=== PATIENT | male | born 1945 | race Caucasian/White ===

== ENCOUNTER 2019-11-08 16:39 | Inpatient (IN) | payer BC, OTHER ==
--- NOTE | 2019-11-08 17:56 | PDOC ---
History of Present Illness - General Chief Complaint: CVA/TIA Stated Complaint: SENT BY PCP Time Seen by Provider: 11/08/19 17:35 - History of Present Illness Initial Comments: 11/08/19 18:02 HPI 74 y/o M hx of CAD s/p stent placement (5 or 6 stents pt unsure), HTN, prediabetes, presents to the ED after an incident of left hand cramping this around 8a.m this morning. pt reports this episode lasted a few seconds and then resolved. he reports having a one similar episode per day for the last 2 days. pt contacted his laborer aquatic life Dr. Sharma' service who got back to him later on in the day and advised him to come to the hospital. Pt reports he was able to play 18 holes of golf after the incident this morning. There have been no other repeat incidents today. Pt denies numbness, tingling, unilateral weakness, headache, blurry vision, chest pain,shortness of breath. PMHx: as noted above ROS: as noted Allergies: NKDA ROS: GENERAL/CONSTITUTIONAL: No fever or chills. No weakness. HEAD, EYES, EARS, NOSE AND THROAT: No change in vision. No ear pain or discharge. No sore throat. CARDIOVASCULAR: No chest pain or shortness of breath RESPIRATORY: No cough, wheezing, or hemoptysis. GASTROINTESTINAL: No nausea, vomiting, diarrhea or constipation. GENITOURINARY: No dysuria, frequency, or change in urination. MUSCULOSKELETAL: No joint or muscle swelling or pain. No neck or back pain. SKIN: No rash NEUROLOGIC: No headache, vertigo, loss of consciousness, or change in strength/sensation. ENDOCRINE: No increased thirst. No abnormal weight change HEMATOLOGIC/LYMPHATIC: No anemia, easy bleeding, or history of blood clots. ALLERGIC/IMMUNOLOGIC: No hives or skin allergy. PE: GENERAL: Awake, alert, and fully oriented, in no acute distress HEAD: No signs of trauma, normocephalic, atraumatic EYES: PERRLA, EOMI, sclera anicteric, conjunctiva clear ENT: Auricles normal inspection, hearing grossly normal, nares patent, oropharynx clear without exudates. Moist mucosa NECK: Normal ROM, supple, no lymphadenopathy, JVD, or masses LUNGS: No distress, speaks full sentences, clear to auscultation bilaterally HEART: Regular rate and rhythm, normal S1 and S2, no murmurs, rubs or gallops, peripheral pulses normal and equal bilaterally. ABDOMEN: Soft, nontender, normoactive bowel sounds. No guarding, no rebound. No masses EXTREMITIES : Normal inspection, Normal range of motion, no edema. No clubbing or cyanosis NEUROLOGICAL: Cranial nerves II through XII grossly intact. Normal speech, no focal sensorimotor deficits SKIN: Warm, Dry, normal turgor, no rashes or lesions noted MDM DDx including but not limited to: tia, acs, Workup: stroke labs, head ct, chest x-ray, ekg. Scores - HEART score of 5 if troponin normal - EKG: normal sinus rhythm, HR 62bpm, IN 134ms, QRS 88ms, QTc 422ms, no ST elevations ED course NIHSS: 0, pt in nad at this time stroke labs, head ct without contrast signed out to Dr. Swenson. Past History - Medical History Allergies/Adverse Reactions: Allergies Allergy/AdvReac Type Severity Reaction Status Date / Time No Known Allergies Allergy Verified 11/08/19 16:49 Home Medications: Ambulatory Orders Aspirin 81 mg PO DAILY 11/08/19 Atorvastatin Ca [Lipitor] 80 mg PO HS 11/08/19 Citalopram Hydrobromide [Citalopram HBr] 20 mg PO DAILY 11/08/19 Clopidogrel Bisulfate [Clopidogrel] 75 mg PO DAILY 11/08/19 Losartan Potassium [Cozaar -] 25 mg PO DAILY 11/08/19 Metformin HCl [Glucophage] 500 mg PO BID 11/08/19 Metoprolol Succinate [Toprol Xl] 25 mg PO DAILY 11/08/19 Cardiac Disorders: Yes (5 STENTS ) COPD: No HTN: Yes Hypercholesterolemia: Yes - Psycho-Social/Smoking History Smoking History: Never smoked Have you smoked in the past 12 months: No Information on smoking cessation initiated: No - Substance Abuse Hx (Audit-C & DAST Scrn) How often the patient has a drink containing alcohol: Never Score: In Men: 4 or > Positive; In Women: 3 or > Positive: 0 Screen Result (Pos requires Nsg. Audit-10AR): Negative In the last yr the pt used illegal drug/Rx for NonMed reason: No Score: Yes response is considered Positive: 0 Screen Result (Positive result requires Nsg. DAST-10): Negative *Physical Exam - Vital Signs Last Vital Signs Temp Pulse Resp BP Pulse Ox 98.6 F 71 18 169/78 100 11/08/19 16:40 11/08/19 16:40 11/08/19 16:40 11/08/19 16:40 11/08/19 17:10 NIH Stroke Scale - Last Known Well Date/Time & Onset Date Last Known Well: 11/08/19 Time Last Known Well: 08:00 - Initial Evaluation Level of consciousness: Alert Ask patient the month and their age: Answers both correctly Ask patient to open & close eyes; make fist and let go: Obeys both correctly Best gaze (horizontal eye movement): Normal Visual field testing: No visual field loss Facial paresis (Show teeth/raise eyebrows/close eyes tight): Normal symmetrical movement Motor Function: Left Arm: Normal Motor Function: Right Arm: Normal (extends arm 90 (or 45) degrees for 10 seconds without drift Motor Function: Left Leg: Normal (extends leg 30 degrees for 5 seconds without drift) Motor Function: Right Leg: Normal (extends leg 30 degrees for 5 seconds without drift) Limb Ataxia: No ataxia Sensory(Use pinprick test arms,legs,trunk,face/side to side): Normal Best language (Describe picture, name items, read sentences): No Aphasia Dysarthria (read several words): Normal articulation Extinction and Inattention: No abnormality - Total Score NIH Stroke Scale Score: 0 Heart Score/ECG Review - History History: Moderately suspicious - Electrocardiogram EKG: Normal - Age Age: >/= 65 - Risk Factors Risk Factors Heart Score: Yes Hx Hypercholesterolemia, Yes Hx Hypertension, Yes Hx Diabetes Based on the list above the patient has:: >/=3 risk factors or Hx atherosclerotic disease - Troponin Troponin: </= normal limit - Score Heart Score - Total: 5 Discharge - Discharge Information Problems reviewed: Yes Clinical Impression/Diagnosis: Transient ischemic attack - Follow up/Referral - Patient Discharge Instructions - Post Discharge Activity
--- NOTE | 2019-11-08 17:59 | PDOC ---
Attending Attestation - Resident Resident Name: Alexadnria Avila - ED Attending Attestation I have performed the following: I have examined & evaluated the patient, The case was reviewed & discussed with the resident, I agree w/resident's findings & plan, Exceptions are as noted - HPI HPI: 74 yo M history CAD s/p 2 prior MIs, with stents placed twice, HTN, prediabetic presents s/p incident with L hand weakness/"stuck" this AM. He states it occurred at about 8am, lasted a few seconds. It was associated with a feeling of warmth, which reminded of his prior [place] symptoms (had a feeling of unpleasant warmth all over his body with both prior MIs). Currently asymptomatic. No changes in speech. No limp hand or leg, no sensation changes. Denies GARCIA. - Physicial Exam PE: GENERAL: Awake, alert, and fully oriented, in no acute distress HEAD: No signs of trauma EYES: PERRLA, EOMI, sclera anicteric, conjunctiva clear ENT: Auricles normal inspection, hearing grossly normal, nares patent, oropharynx clear without exudates. Moist mucosa NECK: Normal ROM, supple, no lymphadenopathy, JVD, or masses LUNGS: Breath sounds equal, clear to auscultation bilaterally. No wheezes, and no crackles HEART: Regular rate and rhythm, normal S1 and S2, no murmurs, rubs or gallops ABDOMEN: Soft, nontender, normoactive bowel sounds. No guarding, no rebound. No masses EXTREMITIES: Normal range of motion, no edema. No clubbing or cyanosis. No cords, erythema, or tenderness NEUROLOGICAL: Cranial nerves II through XII grossly intact. Normal speech, normal gait. Motor and sensation intact SKIN: Warm, dry, normal turgor, no rashes or lesions noted. - Medical Decision Making 11/08/19 18:56 Pt presents after speaking with Dr. Pollock, covering Dr. Jimenez, for CVA workup. Stroke labs pending, will go for CTH. He is out of the tPA window, and aside from that his NIHSS is zero at present. However, given his prior atypical presentations for his MIs, would be more concerned about MT, especially because he had the warmth, and because the hand symptoms were not typical for CVA. Either way, would anticipate admission. Awake CTH and troponin to help guide decision-making process. NIH Stroke Scale - Last Known Well Date/Time & Onset Date Last Known Well: 11/08/19 Time Last Known Well: 08:00 - Initial Evaluation Level of consciousness: Alert Ask patient the month and their age: Answers both correctly Ask patient to open & close eyes; make fist and let go: Obeys both correctly Best gaze (horizontal eye movement): Normal Visual field testing: No visual field loss Facial paresis (Show teeth/raise eyebrows/close eyes tight): Normal symmetrical movement Motor Function: Left Arm: Normal Motor Function: Right Arm: Normal (extends arm 90 (or 45) degrees for 10 seconds without drift Motor Function: Left Leg: Normal (extends leg 30 degrees for 5 seconds without drift) Motor Function: Right Leg: Normal (extends leg 30 degrees for 5 seconds without drift) Limb Ataxia: No ataxia Sensory(Use pinprick test arms,legs,trunk,face/side to side): Normal Best language (Describe picture, name items, read sentences): No Aphasia Dysarthria (read several words): Normal articulation Extinction and Inattention: No abnormality - Total Score NIH Stroke Scale Score: 0 Discharge - Discharge Information Problems reviewed: Yes Clinical Impression/Diagnosis: Transient ischemic attack - Follow up/Referral - Patient Discharge Instructions - Post Discharge Activity
[2019-11-08 18:22] LABS: BASO % 1.1 % (0-2.0); HEMATOCRIT 37.2 % (35.4-49); HEMOGLOBIN 12.6 GM/dL (11.7-16.9); LYMPH % 21.2 % (8-40); MCH 29.6 pg (25.7-33.7); MCHC 33.9 g/dl (32.0-35.9); MEAN CELL VOLUME 87.5 fl (80-96); MEAN PLT VOLUME 8.9 fl (7.5-11.1); MONO % 10.9 % (3.8-10.2); NEUT % 63.8 % (42.8-82.8); PLATELET COUNT 140 K/MM3 (134-434); RBC 4.24 M/mm3 (4.00-5.60); RDW 13.9 % (11.9-15.9); WHITE BLOOD COUNT 5.4 K/mm3 (4.0-10.0)
[2019-11-08 18:53] LABS: ALBUMIN 3.8 g/dl (3.4-5.0); ALK PHOS 88 U/L (45-117); ANION GAP 5 MMOL/L (8-16); BILIRUBIN,TOTAL 0.9 mg/dL (0.2-1); BLOOD UREA NITROGEN 22.7 mg/dL (7-18); CALCIUM 8.3 mg/dL (8.5-10.1); CHLORIDE 110 mmol/L (98-107); CHOLESTEROL 134 mg/dL (50-200); CO2 27 mmol/L (21-32); GLUCOSE,RANDOM 108 mg/dL (74-106); HDL CHOLESTEROL 30 mg/dL (40-60); LDL CHOLESTEROL (ONLY SJRH) 71 mg/dL (5-100); POTASSIUM 3.9 mmol/L (3.5-5.1); SGOT/AST 19 U/L (15-37); SGPT/ALT 25 U/L (13-61); SODIUM 143 mmol/L (136-145); TOT PROT 6.7 g/dl (6.4-8.2); TRIGLYCERIDES 340 mg/dL (0-150)
[2019-11-08 19:35] LABS: URINE APPEARANCE CLEAR; URINE BILIRUBIN NEGATIVE (NEGATIVE); URINE COLOR YELLOW; URINE GLUCOSE (UA) NEGATIVE (NEGATIVE); URINE KETONE NEGATIVE (NEGATIVE); URINE LEUK ESTERASE NEGATIVE (NEGATIVE); URINE NITRITE NEGATIVE (NEGATIVE); URINE PROTEIN NEGATIVE (NEGATIVE)
[2019-11-08] MEDS ORDERED: ATORVASTATIN CA 80 MG TABLET (FP) ONE (21:52)
[2019-11-08] MEDS ORDERED: metFORMIN HCL 500 MG TABLET (FP) ONE (21:52)
[2019-11-08] MEDS: ATORVASTATIN CA 80 MG TABLET (FP) PO SCH (21:59)
[2019-11-08] MEDS: metFORMIN HCL 500 MG TABLET (FP) PO SCH (21:59)
--- NOTE | 2019-11-08 23:00 | CON.CARD ---
Consult Consult Specialty:: Cardiology for dr. Rivera - History of Present Illness History of Present Illness: 74 yo M history CAD s/p 2 prior MIs, with stents placed twice, HTN, prediabetic presents s/p incident with L hand weakness/"stuck" this AM. He states it occurred at about 8am, lasted a few seconds. It was associated with a feeling of warmth, which reminded of his prior [place] symptoms (had a feeling of unpleasant warmth all over his body with both prior MIs). Currently asymptomatic. No changes in speech. No limp hand or leg, no sensation changes. Denies GARCIA. - History Source History Provided By: Medical Record - Past Medical History Cardio/Vascular: Yes: HTN, Hyperlipdemia Endocrine: Yes: Diabetes Mellitus - Smoking History Smoking history: Never smoked Have you smoked in the past 12 months: No Home Medications - Allergies Allergies/Adverse Reactions: Allergies Allergy/AdvReac Type Severity Reaction Status Date / Time No Known Allergies Allergy Verified 11/08/19 16:49 - Home Medications Home Medications: Ambulatory Orders Aspirin 81 mg PO DAILY 11/08/19 Atorvastatin Ca [Lipitor] 80 mg PO HS 11/08/19 Citalopram Hydrobromide [Citalopram HBr] 20 mg PO DAILY 11/08/19 Clopidogrel Bisulfate [Clopidogrel] 75 mg PO DAILY 11/08/19 Losartan Potassium [Cozaar -] 25 mg PO DAILY 11/08/19 Metformin HCl [Glucophage] 500 mg PO BID 11/08/19 Metoprolol Succinate [Toprol Xl] 25 mg PO DAILY 11/08/19 Review of Systems - Review of Systems Constitutional: reports: No Symptoms Eyes: reports: No Symptoms HENT: reports: No Symptoms Neck: reports: No Symptoms Cardiovascular: reports: No Symptoms Respiratory: reports: No Symptoms Gastrointestinal: reports: No Symptoms Genitourinary: reports: No Symptoms Breasts: reports: No Symptoms Reported Musculoskeletal: reports: No Symptoms Integumentary: reports: No Symptoms Neurological: reports: Weakness Endocrine: reports: No Symptoms Hematology/Lymphatic: reports: No Symptoms Psychiatric: reports: No Symptoms Vital Signs: Vital Signs Temperature 98.1 F 11/08/19 19:15 Pulse Rate 59 L 11/08/19 19:15 Respiratory Rate 15 11/08/19 19:15 Blood Pressure 143/78 11/08/19 19:15 O2 Sat by Pulse Oximetry (%) 99 11/08/19 19:15 Constitutional: Yes: Well Nourished, No Distress, Calm Eyes: Yes: WNL, Conjunctiva Clear, EOM Intact HENT: Yes: WNL, Atraumatic, Normocephalic Neck: Yes: WNL, Supple, Trachea Midline Respiratory: Yes: WNL, Regular, CTA Bilaterally Gastrointestinal: Yes: WNL, Normal Bowel Sounds Renal/: Yes: WNL Cardiovascular: Yes: WNL, Regular Rate and Rhythm Musculoskeletal: Yes: WNL Extremities: Yes: WNL - Other Data Labs, Other Data: CBC, BMP 11/08/19 18:10 11/08/19 18:10 Troponin, BNP 11/08/19 18:10 Troponin I < 0.02 Troponin, BNP 11/08/19 18:10 Troponin I < 0.02 Imaging - Results Chest X-ray: Image Reviewed (no i/e) EKG: Image Reviewed (sr wnl) Assessment/Plan 74 yo M history CAD s/p 2 prior MIs, with stents placed twice, HTN, prediabetic presents s/p incident with L hand weakness. EKG wnl, 1 CE neg r/o TIA Plan; Cont medical treatment ASA/Plavix C. Duplex ECHO if not done recently neurology evaluation serial ekg CE Coverage for dr. Gibbs
[2019-11-09 07:55] LABS: BLOOD UREA NITROGEN 20.8 mg/dL (7-18); CALCIUM 8.4 mg/dL (8.5-10.1); CREATININE 0.8 mg/dL (0.55-1.3); POTASSIUM 4.3 mmol/L (3.5-5.1)
[2019-11-09] MEDS ORDERED: ASPIRIN 81 MG CHEWABLE TABLETS ONE (09:23)
[2019-11-09] MEDS ORDERED: metFORMIN HCL 500 MG TABLET (FP) ONE (09:23)
[2019-11-09] MEDS ORDERED: CLOPIDOGREL BISULFATE 75 MG TABLET (FP) ONE (09:24)
[2019-11-09] MEDS ORDERED: LOSARTAN POTASSIUM 50 MG TABLET (FP) ONE (09:24)
[2019-11-09] MEDS ORDERED: CITALOPRAM HYDROBROMIDE 10 MG TABLET ONE (09:24)
[2019-11-09] MEDS ORDERED: metoPROLOL SUCCINATE 25 MG TAB.SR.24H (FP) ONE (09:24)
--- NOTE | 2019-11-09 09:25 | PN ---
Progress Note, Physician History of Present Illness: 74 yo M history CAD s/p 2 prior MIs, with stents placed twice, HTN, prediabetic presents s/p incident with L hand weakness/"stuck" this AM. He states it occurred at about 8am, lasted a few seconds. It was associated with a feeling of warmth, which reminded of his prior [place] symptoms (had a feeling of unpleasant warmth all over his body with both prior MIs). Currently asymptomatic. No changes in speech. No limp hand or leg, no sensation changes. Denies GARCIA. - Current Medication List Current Medications: Active Medications Aspirin (Asa -) 81 mg PO DAILY [facility] Atorvastatin Calcium (Lipitor -) 80 mg PO HS [facility] Last Admin: 11/08/19 21:59 Dose: 80 mg Documented by: Citalopram Hydrobromide (Celexa -) 20 mg PO DAILY [facility] Clopidogrel Bisulfate (Plavix -) 75 mg PO DAILY [facility] Losartan Potassium (Cozaar -) 25 mg PO DAILY [facility] Metformin HCl (Glucophage -) 500 mg PO BID [facility] Last Admin: 11/08/19 21:59 Dose: 500 mg Documented by: Metoprolol Succinate (Toprol Xl -) 25 mg PO DAILY [facility] - Objective Vital Signs: Vital Signs Temperature 97.8 F 11/09/19 05:49 Pulse Rate 55 L 11/09/19 08:02 Respiratory Rate 18 11/09/19 08:02 Blood Pressure 146/81 11/09/19 08:02 O2 Sat by Pulse Oximetry (%) 100 11/09/19 08:04 Eyes: Yes: WNL, Conjunctiva Clear, EOM Intact HENT: Yes: WNL, Atraumatic, Normocephalic Neck: Yes: WNL, Supple, Trachea Midline Cardiovascular: Yes: WNL, Regular Rate and Rhythm Respiratory: Yes: WNL, Regular, CTA Bilaterally Gastrointestinal: Yes: WNL, Normal Bowel Sounds Genitourinary: Yes: WNL Musculoskeletal: Yes: WNL Extremities: Yes: WNL Edema: No Integumentary: Yes: WNL Neurological: Yes: WNL, Alert, Oriented ...Motor Strength: WNL Psychiatric: Yes: WNL Labs: CBC, BMP 11/08/19 18:10 11/09/19 06:12 Assessment/Plan 74 yo M history CAD s/p 2 prior MIs, with stents placed twice, HTN, prediabetic presents s/p incident with L hand weakness. EKG wnl, 1 st CE neg r/o TIA Plan; Cont medical treatment ASA/Plavix C. Duplex ECHO if not done recently neurology evaluation serial ekg CE Coverage for dr. Gibbs
[2019-11-09] MEDS: CITALOPRAM HYDROBROMIDE 20 MG TABLET PO SCH (09:29)
[2019-11-09] MEDS: CLOPIDOGREL BISULFATE 75 MG TABLET (FP) PO SCH (09:29)
[2019-11-09] MEDS: ASPIRIN 81 MG CHEWABLE TABLETS PO SCH (09:29)
[2019-11-09] MEDS: metoPROLOL SUCCINATE 25 MG TAB.SR.24H (FP) PO SCH (09:29)
[2019-11-09] MEDS: LOSARTAN POTASSIUM 25 MG TABLET PO SCH (09:29)
[2019-11-09] MEDS: metFORMIN HCL 500 MG TABLET (FP) PO SCH ×2 (09:29→21:29)
--- NOTE | 2019-11-09 09:53 | HP ---
Admitting History and Physical - Primary Care Physician PCP: Jalyn Morillo S - Admission Chief Complaint: LUE weakness and numbness History of Present Illness: 74 yo M history CAD s/p 2 prior MIs, with stents placed twice over 10 years ago, HTN, prediabetic presents s/p incident with L hand weakness/"stuck" this AM. He states it occurred at about 8am, lasted a few seconds. It was associated with a feeling of warmth, which reminded of his prior [place] symptoms (had a feeling of unpleasant warmth all over his body with both prior MIs). Currently asymptomati c. No changes in speech. No limp hand or leg, no sensation changes. Denies GARCIA. History Source: Patient, Medical Record Limitations to Obtaining History: No Limitations - Past Medical History Cardiovascular: Yes: CAD, HTN, Hyperlipdemia Endocrine: Yes: Diabetes Mellitus - Smoking History Smoking history: Never smoked Have you smoked in the past 12 months: No - Alcohol/Substance Use Hx Alcohol Use: No History of Substance Use: reports: None - Social History Usual Living Arrangement: Yes: Alone Do you think of yourself as: Straight/Heterosexual ADL: Independent History of Recent Travel: No Home Medications - Allergies Allergies/Adverse Reactions: Allergies Allergy/AdvReac Type Severity Reaction Status Date / Time No Known Allergies Allergy Verified 11/08/19 16:49 - Home Medications Home Medications: Ambulatory Orders Aspirin 81 mg PO DAILY 11/08/19 Atorvastatin Ca [Lipitor] 80 mg PO HS 11/08/19 Citalopram Hydrobromide [Citalopram HBr] 20 mg PO DAILY 11/08/19 Clopidogrel Bisulfate [Clopidogrel] 75 mg PO DAILY 11/08/19 Losartan Potassium [Cozaar -] 25 mg PO DAILY 11/08/19 Metformin HCl [Glucophage] 500 mg PO BID 11/08/19 Metoprolol Succinate [Toprol Xl] 25 mg PO DAILY 11/08/19 Family Medical History Family History: Unremarkable Review of Systems - Review of Systems Constitutional: denies: Chills, Fever, Lethargy Eyes: denies: Blind Spots, Blurred Vision, Double Vision HENT: denies: Difficult Swallowing, Ear Pain, Epistaxis Neck: denies: Decreased ROM, Lumps, Pain on Movement, Stiffness, Tenderness Cardiovascular: denies: Chest Pain, Edema, Palpitations, Shortness of Breath Respiratory: denies: Cough, SOB, SOB on Exertion, Wheezing Gastrointestinal: denies: Abdominal Pain, Constipation, Diarrhea, Vomiting Genitourinary: denies: Dysuria, Flank Pain Musculoskeletal: denies: Back Pain, Joint Pain Integumentary: denies: Eczema, Pruritis, Rash Neurological: denies: Change in LOC, Change in Speech, Confusion, Headache, Seizure, Syncope Endocrine: denies: Excessive Sweating, Unexplained Weight Gain, Unexplained Weight Loss Hematology/Lymphatic: denies: Easily Bruised, Excessive Bleeding Psychiatric: denies: Altered Sleep Pattern, Suicidal Physical Examination Vital Signs: Vital Signs Temperature 97.8 F 11/09/19 05:49 Pulse Rate 69 11/09/19 09:51 Respiratory Rate 18 11/09/19 09:51 Blood Pressure 155/78 11/09/19 09:51 O2 Sat by Pulse Oximetry (%) 100 11/09/19 09:51 Constitutional: Yes: No Distress, Calm Eyes: Yes: Conjunctiva Clear HENT: Yes: Atraumatic Neck: Yes: Supple Cardiovascular: Yes: Regular Rate and Rhythm Respiratory: Yes: CTA Bilaterally Gastrointestinal: Yes: Soft. No: Tenderness Renal/: No: Hematuria Musculoskeletal: No: Joint Stiffness, Joint Swelling Extremities: No: Cold, Cool, Cyanosis Edema: No Integumentary: No: Rash, Venous Stasis Changes Neurological: Yes: Alert, Oriented ...Motor Strength: WNL Psychiatric: Yes: Alert, Oriented. No: Agitated, Suicidal Ideation Labs: CBC, BMP 11/08/19 18:10 11/09/19 06:12 Imaging - Results Chest X-ray: Report Reviewed Cat Scan: Report Reviewed EKG: Report Reviewed Assessment/Plan 74 yo M history CAD s/p 2 prior MIs, with stents placed twice, HTN, prediabetic presents s/p incident with L hand weakness/"stuck" this AM. He states it occurred at about 8am, lasted a few seconds. admit to telemetry cardio and neuro eval CE; plavix and ASA po carotid US d/w pt and staff will d/w pt's PCP dr Marisela Contreras
--- NOTE | 2019-11-09 12:45 | EKG ---
Test Reason : Blood Pressure : / mmHG Vent. Rate : 062 BPM Atrial Rate : 062 BPM P-R Int : 134 ms QRS Dur : 088 ms QT Int : 416 ms P-R-T Axes : 070 009 004 degrees QTc Int : 422 ms NORMAL SINUS RHYTHM NORMAL ECG NO PREVIOUS ECGS AVAILABLE Confirmed by Jerry Smith ([id number]) on 11/09/2019 12:45:07 PM Referred By: Confirmed By:Jerry Smith
--- NOTE | 2019-11-09 16:40 | CON.NEURO ---
Consult - Past Medical History Cardio/Vascular: Yes: HTN, Hyperlipdemia Endocrine: Yes: Diabetes Mellitus - Smoking History Smoking history: Never smoked Have you smoked in the past 12 months: No Home Medications - Allergies Allergies/Adverse Reactions: Allergies Allergy/AdvReac Type Severity Reaction Status Date / Time No Known Allergies Allergy Verified 11/08/19 16:49 - Home Medications Home Medications: Ambulatory Orders Aspirin 81 mg PO DAILY 11/08/19 Atorvastatin Ca [Lipitor] 80 mg PO HS 11/08/19 Citalopram Hydrobromide [Citalopram HBr] 20 mg PO DAILY 11/08/19 Clopidogrel Bisulfate [Clopidogrel] 75 mg PO DAILY 11/08/19 Losartan Potassium [Cozaar -] 25 mg PO DAILY 11/08/19 Metformin HCl [Glucophage] 500 mg PO BID 11/08/19 Metoprolol Succinate [Toprol Xl] 25 mg PO DAILY 11/08/19 Physical Exam-Neuro Vital Signs: Vital Signs Temperature 97.8 F 11/09/19 05:49 Pulse Rate 69 11/09/19 09:51 Respiratory Rate 18 11/09/19 09:51 Blood Pressure 155/78 11/09/19 09:51 O2 Sat by Pulse Oximetry (%) 100 11/09/19 09:51 Labs: CBC, BMP 11/08/19 18:10 11/09/19 06:12 Assessment/Plan CC left arm transient weakness HPI 74 year old male history of htn, hld, prediabetes, cad s/p stent placement. He came for left arm weakness , and he was feeling uncomfortable chest and both arm some strange feeling. He did have ct head, and carotid ultrasound is normal. He do take aspirin, plavix and statin at home. Patient deines any ncek pain, face tingling or numbness , speech difficulty, no face droppiness.This episode lasted few minute H PMHx: as noted above ROS: as noted Allergies: NKDA Allergies/Adverse Reactions: Allergies Allergy/AdvReac Type Severity Reaction Status Date / Time No Known Allergies Allergy Verified 11/08/19 16:49 Home Medications: Aspirin 81 mg PO DAILY 11/08/19 Atorvastatin Ca [Lipitor] 80 mg PO HS 11/08/19 Citalopram Hydrobromide [Citalopram HBr] 20 mg PO DAILY 11/08/19 Clopidogrel Bisulfate [Clopidogrel] 75 mg PO DAILY 11/08/19 Losartan Potassium [Cozaar -] 25 mg PO DAILY 11/08/19 Metformin HCl [Glucophage] 500 mg PO BID 11/08/19 Metoprolol Succinate [Toprol Xl] 25 mg PO DAILY 11/08/19 ROS,FH,SH reviewed in chart neurological examination Alert oriented x 3 neck is supple eomi, pupilks reactive no face asymmetry moving all ext sensation is normal gait and coordination ct head is noraml carotid ultrasound unremarkable Assessment/Plan 4 year old male history of htn, hld, prediabetes, cad s/p stent placement . He came with transient left arm weakness suspect tia Plan: continue aspirin , plavix and statin - He would benefit from mri ofbrain if we found a ischemic lesion, than would lead to more aggressive preventative strategy and monitoring for transient AF. - He is claustrophobic and may not have mri in hospital, would do outpatient - continue current level of care, follow up outpatient Thankign you so much Theodore Marx MD
[2019-11-09 17:47] VITALS: BMI 28.6
--- NOTE | 2019-11-09 21:21 | EKG ---
Test Reason : Blood Pressure : / mmHG Vent. Rate : 056 BPM Atrial Rate : 056 BPM P-R Int : 138 ms QRS Dur : 090 ms QT Int : 440 ms P-R-T Axes : 050 -07 -05 degrees QTc Int : 424 ms SINUS BRADYCARDIA WITH PREMATURE ATRIAL COMPLEXES MINIMAL VOLTAGE CRITERIA FOR LVH, MAY BE NORMAL VARIANT BORDERLINE ECG WHEN COMPARED WITH ECG OF 08-NOV-2019 16:57, PREMATURE ATRIAL COMPLEXES ARE NOW PRESENT Confirmed by VICK ESCOBAR, DANG ([id number]) on 11/09/2019 9:21:04 PM Referred By: Cynthia MARINO Confirmed By:DANG HICKMAN MD
[2019-11-09] MEDS: ATORVASTATIN CA 80 MG TABLET (FP) PO SCH (21:29)
[2019-11-10 06:27] VITALS: TEMP 97.5
[2019-11-10 09:18] VITALS: BP 123/52; PULSE 65
[2019-11-10] MEDS ORDERED: ALPRAZolam 0.25 MG TABLET PO ONE (09:18)
--- NOTE | 2019-11-10 09:19 | DS ---
Physical Examination Vital Signs: Vital Signs Temperature 97.5 F L 11/10/19 09:16 Pulse Rate 65 11/10/19 09:16 Respiratory Rate 20 11/10/19 09:16 Blood Pressure 123/52 L 11/10/19 09:16 O2 Sat by Pulse Oximetry (%) 97 11/10/19 09:16 Findings/Remarks: feels well no c/o LUE improved wants to go home d/w neuro if brain MRI ade cute changes to DC home f/u outpt; cleared by cardio for DC home d/w pt f/u needed d/w pt's PCP dr Marisela Enciso Constitutional: Yes: No Distress, Calm Eyes: Yes: Conjunctiva Clear HENT: Yes: Atraumatic Neck: Yes: Supple Cardiovascular: Yes: Regular Rate and Rhythm Respiratory: Yes: CTA Bilaterally Gastrointestinal: Yes: Soft. No: Tenderness Renal/: No: Hematuria Musculoskeletal: No: Joint Stiffness, Joint Swelling Extremities: No: Cold, Cool, Cyanosis Edema: No Integumentary: No: Rash, Venous Stasis Changes Neurological: Yes: Alert, Oriented ...Motor Strength: WNL Psychiatric: Yes: Alert, Oriented. No: Agitated, Suicidal Ideation Labs: CBC, BMP 11/08/19 18:10 11/09/19 06:12 Discharge Summary Problems reviewed: Yes Reason For Visit: TRANSIENT ISCHEMIC ATTACK Current Active Problems Transient ischemic attack (Acute) Procedures: Principal: 74 YOM admitted with LUE numbness CE negative head CT negative Other Procedures: seen by cardio and neurology; carotid US negative; brain MRI no acute CVA Hospital Course: improved with above; DC home f/u as advised. Condition: Improved - Instructions Diet, Activity, Other Instructions: f/u PCP cardiology and neurology in 1-2 weeks after DC home RTER if worse or recurrent c/o take meds as advised d/w pt Referrals: Mihcel Perez MD [Staff Physician] - Gera Gibbs MD [Staff Physician] - Brittny Enciso MD [Primary Care Provider] - - Home Medications Comprehensive Discharge Medication List: Ambulatory Orders Aspirin 81 mg PO DAILY 11/08/19 Atorvastatin Ca [Lipitor] 80 mg PO HS 11/08/19 Citalopram Hydrobromide [Citalopram HBr] 20 mg PO DAILY 11/08/19 Clopidogrel Bisulfate [Clopidogrel] 75 mg PO DAILY 11/08/19 Losartan Potassium [Cozaar -] 25 mg PO DAILY 11/08/19 Metformin HCl [Glucophage] 500 mg PO BID 11/08/19 Metoprolol Succinate [Toprol Xl] 25 mg PO DAILY 11/08/19
[2019-11-10] MEDS: LOSARTAN POTASSIUM 25 MG TABLET PO SCH (10:13)
[2019-11-10] MEDS: metoPROLOL SUCCINATE 25 MG TAB.SR.24H (FP) PO SCH (10:13)
[2019-11-10] MEDS: CITALOPRAM HYDROBROMIDE 20 MG TABLET PO SCH (10:13)
[2019-11-10] MEDS: ASPIRIN 81 MG CHEWABLE TABLETS PO SCH (10:13)
[2019-11-10] MEDS: metFORMIN HCL 500 MG TABLET (FP) PO SCH (10:13)
[2019-11-10] MEDS: CLOPIDOGREL BISULFATE 75 MG TABLET (FP) PO SCH (10:13)
--- NOTE | 2019-11-10 11:47 | PN ---
Progress Note, Physician Chief Complaint: Events noted Not in distress History of Present Illness: Patient was seen and examined. Awake and alert. Chart was reviewed Denies chest pain, SOB or palpitations - Current Medication List Current Medications: Active Medications Aspirin (Asa -) 81 mg PO DAILY [facility] Last Admin: 11/10/19 10:13 Dose: 81 mg Documented by: Atorvastatin Calcium (Lipitor -) 80 mg PO HS [facility] Last Admin: 11/09/19 21:29 Dose: 80 mg Documented by: Citalopram Hydrobromide (Celexa -) 20 mg PO DAILY [facility] Last Admin: 11/10/19 10:13 Dose: 20 mg Documented by: Clopidogrel Bisulfate (Plavix -) 75 mg PO DAILY [facility] Last Admin: 11/10/19 10:13 Dose: 75 mg Documented by: Losartan Potassium (Cozaar -) 25 mg PO DAILY [facility] Last Admin: 11/10/19 10:13 Dose: 25 mg Documented by: Metformin HCl (Glucophage -) 500 mg PO BID [facility] Last Admin: 11/10/19 10:13 Dose: 500 mg Documented by: Metoprolol Succinate (Toprol Xl -) 25 mg PO DAILY [facility] Last Admin: 11/10/19 10:13 Dose: 25 mg Documented by: - Objective Vital Signs: Vital Signs Temperature 97.5 F L 11/10/19 09:16 Pulse Rate 65 11/10/19 09:16 Respiratory Rate 20 11/10/19 09:16 Blood Pressure 123/52 L 11/10/19 09:16 O2 Sat by Pulse Oximetry (%) 97 11/10/19 09:16 Neck: Yes: Supple Cardiovascular: Yes: Regular Rate and Rhythm, S1, S2. No: Murmur Respiratory: Yes: CTA Bilaterally Gastrointestinal: Yes: Normal Bowel Sounds, Soft. No: Tenderness Edema: No Additional Findings/Remarks: - Review of Systems Constitutional: denies: Chills, Fever Cardiovascular: denies: Chest Pain, Palpitations, Shortness of Breath Respiratory: denies: Cough, Hemoptysis, Orthopnea, PND, SOB, SOB on Exertion Gastrointestinal: denies: Abdominal Pain, Constipation, Diarrhea, Melena, Nausea, Rectal Bleeding, Vomiting Genitourinary: denies: Dysuria, Hematuria Musculoskeletal: denies: Back Pain, Joint Pain Neurological: denies: Dizziness, Headache, Seizure, Syncope Labs: CBC, BMP 11/08/19 18:10 11/09/19 06:12 Problem List - Problems (1) CAD (coronary artery disease) Code(s): I25.10 - ATHSCL HEART DISEASE OF [place] CORONARY ARTERY W/O ANG PCTRS (2) History of percutaneous coronary intervention Code(s): Z98.61 - CORONARY ANGIOPLASTY STATUS (3) HTN (hypertension) Code(s): I10 - ESSENTIAL (PRIMARY) HYPERTENSION (4) Hypercholesterolemia Code(s): E78.00 - PURE HYPERCHOLESTEROLEMIA, UNSPECIFIED (5) Pre-diabetes Code(s): R73.03 - PREDIABETES (6) Transient ischemic attack Code(s): G45.9 - TRANSIENT CEREBRAL ISCHEMIC ATTACK, UNSPECIFIED Assessment/Plan 1. CAD s/p PCI/stent, SD, angina pectoris 2. HTN 3. Left had weakness ? etiology ? TIA 4. Hypercholesterolemia 5. Borderline DM PLAN: 1. Neuro input noted 2. Brain MRI 3. Continue Metoprolol ER 25 mg QD and Losartan 25 mg QD 4. ASA and Plavix 5. Atorvastatin 80 mg QD Follow up with Dr. Dominik Canales, [facility] in office. Masoud Rivera MD
--- NOTE | 2019-11-10 16:11 | PN ---
Progress Note (short form) - Note Progress Note: 74 year old male history of htn, hld, prediabetes, cad s/p stent placement. He came for left arm weakness , and he was feeling uncomfortable chest and both arm some strange feeling. He did have ct head, and carotid ultrasound is normal. He do take aspirin, plavix and statin at home. Patient deines any ncek pain, face tingling or numbness , speech difficulty, no face droppiness.This episode lasted few minute -- no new symptoms and mri ofbrain is unremarkable. neurological examination Alert oriented x 3 neck is supple eomi, pupilks reactive no face asymmetry moving all ext sensation is normal gait and coordination ct head is noraml carotid ultrasound unremarkable Assessment/Plan 4 year old male history of htn, hld, prediabetes, cad s/p stent placement . He came with transient left arm weakness suspect tia Plan: continue aspirin , plavix and statin - continue current care, and follow up outpatient. Thankign you so much Theodore Marx MD
== END 2019-11-10 13:53 | disposition home or self-care (01) | DRG 69 ==
LOC: JER 16:39 → JERBED 19:20 → J4W 11-09 17:51
PROVIDERS: ADMIT Specialist; ATTEND Specialist
DX: G45.9 Transient cerebral ischemic attack, unspecified (principal); I10 Essential (primary) hypertension; I25.10 Atherosclerotic heart disease of native coronary artery without angina pectoris; R73.03 Prediabetes; E78.5 Hyperlipidemia, unspecified; Z95.5 Presence of coronary angioplasty implant and graft; R53.1 Weakness; R20.0 Anesthesia of skin
CPT/HCPCS: 36415; 70450-TC; 70551-TC; 71045-TC-FY; 80048; 80053; 80061; 81003; 82550; 82553; 82962; 83721; 84439; 84443; 84484; 85025; 86850; 86900; 86901; 93005; 93010; 93880-TC; 99285-25; U0003